=== PATIENT | female | born 2000 | race Two or more races ===

== ENCOUNTER 2021-10-07 21:59 | Emergency (ER) | payer OTHER | END 2021-10-07 23:49 | disposition left against medical advice (07) | LOC: ER 21:59 | DX: M25.512 Pain in left shoulder (principal); Z53.21 Procedure and treatment not carried out due to patient leaving prior to being seen by health care provider; V86.96XA Unspecified occupant of dirt bike or motor/cross bike injured in nontraffic accident, initial encounter; Y93.89 Activity, other specified; Y92.89 Other specified places as the place of occurrence of the external cause; Y99.8 Other external cause status ==